=== PATIENT | female | born 1990 | race Caucasian/White ===

== ENCOUNTER 2019-03-02 13:29 | Inpatient (IN) ==
[2019-03-02] MEDS ORDERED: OXYTOCIN 30 UNITS/500 ML BAG IV PRN ×3 (14:28→23:42)
--- NOTE | 2019-03-02 14:33 | History & Physical Report ---
Date of Service March 02, 2019 Assessment & Plan (1) 39 weeks gestation of : Spontaneous early labor - admit to L&D. IV access, labs, EFM/[place]. Will plan to walk the halls. OK for epidural when she desires. History of Present Illness Chief Complaint: contractions Primary Care Provider: Dale Pretty MD 28yo @ 39 5 presents with worsening contractions, started at 0400 today. No leaking of fluid. Has had some dark brown vaginal spotting. + movement. complicated by ultrasound showing intracardiac echogenic focus, negative panorama. 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 Dark bloody show. FHT Cat 1, reactive. [place] Q2-3 min Results & Data Vital Signs (Past 12 Hours) Vital Signs Temp Pulse Resp BP 03/02/19 13:43 36.8 C 81 20 127/84 03/02/19 13:40 36.8 C 81 20 127/84
[2019-03-02 14:59] LABS: Hematocrit (blood only) 37.3 % (37-47); Hemoglobin 12.7 g/dL (12.0-16.0); Mean Corpuscular Volume 90.3 fL (80-100); Mean Platelet Volume 12.6 fL (7.4-10.4); Platelet Count 132 K/uL (130-400); RDW Coefficient of Variation 13.6 % (11.5-14.5); RDW Standard Deviation 45.1 fL (36.4-46.3); Red Blood Count 4.13 M/uL (4.2-5.4); White Blood Count 10.73 K/uL (4.8-10.8)
[2019-03-02] MEDS ORDERED: ePHEDrine sulfate 50 MG/ML AMP ONE (16:57)
[2019-03-02] MEDS ORDERED: BUPIVACAINE 0.25% 30 ML VIAL ONE (16:57)
[2019-03-02] MEDS ORDERED: fentaNYL citrate 100 MCG/2 ML VIAL ONE (16:58)
[2019-03-02] MEDS ORDERED: fentaNYL 2MCG/ML ROPIV 1.25MG/ML 100 ML BAG EPI ONE (16:58)
[2019-03-02] MEDS: LACTATED RINGER'S 1,000 ML IV PRN ×2 (17:04→18:32)
--- NOTE | 2019-03-02 17:17 | Anesthesiology Consultation ---
Date of Service March 02, 2019 Assessment & Plan (1) Encounter for pre-operative examination: Chart Review Chart Review: Acceptable Risk for Labor Epidural Consults Requested none ASA ASA2 Proposed Anesthesia Anesthesia Type: Labor Epidural Risk / Benefits Reviewed With: PT / POA / Parent / Guardian, Accepts Plan and Informed Consent Obtained History Height/Weight Height: 5 ft 4 in Weight: 79.379 kg Allergies Allergy/AdvReac Type Severity Reaction Status Date / Time No Known Allergies Allergy Unverified 04/08/15 19:43 Medications Home Medications Medication Instructions Recorded Confirmed Last Taken vit-iron fum-folic ac 1 tab PO DAILY 03/02/19 03/02/19 03/02/19 06:00 [ Vitamin] ranitidine HCl [Zantac 75] 75 mg PO BID 03/02/19 03/02/19 03/02/19 06:00 Active Medications Generic Name Dose Route Start Last Admin Trade Name Freq PRN Reason Stop Dose Admin Lactated Ringer's 1,000 mls @ 125 mls/hr 03/02/19 14:28 03/02/19 17:04 Lr IV 03/04/19 14:27 999 mls/hr .Q8H PRN Administration L&D Protocol Protocol Past Medical History Medical History [place] teeth removed Exercise / Class Metabolic Activity II 4-5 Yardwork/Stairs/Walk up hill Past Anesthesia History No Hx of Anesthesia Complications and No Family Hx of Anesthesia Complications History of PONV No Hx of PONV and No Hx of Motion Sickness Social History Smoking Status: Former smoker Do You Dip or Chew Tobacco: No Hx Alcohol Use: No Hx Substance Use: No Physical Exam Vital Signs Last Vital Signs Temp 97.9 F 03/02/19 15:19 Pulse 66 03/02/19 15:20 Resp 22 03/02/19 15:19 BP 116/78 03/02/19 15:20 ENMT Mouth: no dentition abnormality Thyromental Distance: > or= 3.5 Finger Breadths Mallampati Class: II Neck normal visual inspection Respiratory normal respiratory effort Auscultation: lungs clear to auscultation bilaterally Cardiovascular Rate/Rhythm: regular rate and regular rhythm Testing Laboratory Results 03/02/19 14:39
[2019-03-02] MEDS ORDERED: NALBUPHINE HCL INJ 10 MG/ML AMP IV PRN (17:38)
[2019-03-02] MEDS ORDERED: NALOXONE HCL 0.4 MG/1 ML VIAL/CARP IV PRN (17:38)
[2019-03-02] MEDS ORDERED: NALOXONE HCL 1 MG in SODIUM CHLORIDE 0.9% 1000ML 1,000 ML IV PRN (17:38)
[2019-03-02] MEDS ORDERED: ePHEDrine sulfate 50 MG/ML AMP IV PRN (17:38)
[2019-03-02] MEDS ORDERED: DiphenhydrAMINE HCL 50 MG/ML VIAL IV PRN (17:38)
[2019-03-02] MEDS ORDERED: fentaNYL 2MCG/ML ROPIV 1.25MG/ML 100 ML BAG EPI PRN (17:38)
[2019-03-02] MEDS ORDERED: ONDANSETRON INJ 2 MG/ML 2 ML VIAL IV PRN (17:38)
--- NOTE | 2019-03-02 20:13 | Obstetrical Progress Note ---
Date of Service March 02, 2019 Subjective SROM for clear fluid about 45 minutes ago per RN. Comfortable with epidural. FHT Cat 1 [place] Q 2-4 SVE 7/100/-1 Will start pitocin to increase ctx frequency - patient is agreeable. Results & Data Vital Signs (Past 12 Hours) Vital Signs Temp Pulse Resp BP Pulse Ox 03/02/19 20:09 77 97 03/02/19 20:04 75 98 03/02/19 19:59 72 99 03/02/19 19:56 65 109/60 03/02/19 19:54 68 98 03/02/19 19:49 72 98 03/02/19 19:44 65 98 03/02/19 19:41 65 108/59 L 03/02/19 19:39 71 98 03/02/19 19:34 68 98 03/02/19 19:29 66 98 03/02/19 19:27 63 103/58 L 03/02/19 19:24 65 97 03/02/19 19:19 67 97 03/02/19 19:14 75 99 03/02/19 19:11 72 103/59 L 03/02/19 19:09 71 98 03/02/19 19:04 65 97 03/02/19 18:59 68 97 03/02/19 18:57 66 106/59 L 03/02/19 18:54 67 97 03/02/19 18:49 67 98 03/02/19 18:44 80 99 03/02/19 18:41 70 109/64 03/02/19 18:39 73 99 03/02/19 18:34 99 H 99 03/02/19 18:29 64 98 03/02/19 18:26 62 108/64 03/02/19 18:24 72 99 03/02/19 18:19 63 98 03/02/19 18:14 60 98 03/02/19 18:12 62 108/67 03/02/19 18:09 63 98 03/02/19 18:04 63 98 03/02/19 17:59 65 98 03/02/19 17:54 66 151/116 H 99 03/02/19 17:49 66 99 03/02/19 17:47 68 97/55 L 03/02/19 17:44 75 99 03/02/19 17:41 76 107/60 03/02/19 17:39 71 97/56 L 99 03/02/19 17:37 78 99/59 L 03/02/19 17:36 70 94/54 L 03/02/19 17:35 70 94/53 L 03/02/19 17:34 73 99/55 L 100 03/02/19 17:29 76 99 03/02/19 17:24 92 H 98 03/02/19 17:20 86 93 03/02/19 17:19 84 99 03/02/19 15:20 66 116/78 03/02/19 15:19 36.6 C 22 03/02/19 13:43 36.8 C 81 20 127/84 03/02/19 13:40 36.8 C 81 20 127/84
--- NOTE | 2019-03-02 23:38 | Anesthesia Procedure Note ---
Date of Service March 02, 2019 Anesthesia Post Epidural Note Vital Signs Vital Signs: Temp Pulse Resp BP Pulse Ox 37.0 C 75 20 112/76 98 03/02/19 22:38 03/02/19 23:25 03/02/19 22:38 03/02/19 23:25 03/02/19 23:24 Pain Intensity Bilateral Abdomen: Pain Intensity: 0 Notes Mental Status: alert / awake / arousable and participated in evaluation Nausea / Vomiting: adequately controlled Pain: adequately controlled Airway Patency, RR, SpO2: stable & adequate BP & HR: stable & adequate Hydration State: stable & adequate Neuraxial Anesthesia: was administered and sensory block is resolving Anesthetic Complications: no major complications apparent and Pt Satisfied with anesthetic care Epidural: Removed without complications and With tip intact Notes: Epidural site clean, dry and intact. No signs of edema, erythema or bruising at insertion site. Pt instructed to request anesthesia if she has residual lower extremity numbness or if she develops lower extremity pain or weakness, back pain or headache.
[2019-03-02] MEDS ORDERED: BENZOCAINE 20% AER SPR 82.5 GM CAN EXT PRN (23:42)
[2019-03-02] MEDS ORDERED: HYDROCORTISONE ACETATE 25 MG SUPP PR PRN (23:42)
[2019-03-02] MEDS ORDERED: SUPERCREAM 0.870% 15 GM JAR EXT PRN (23:42)
[2019-03-02] MEDS ORDERED: BISACODYL 10 MG SUPP PR PRN (23:42)
[2019-03-02] MEDS ORDERED: ACETAMINOPHEN 325 MG TAB PO PRN (23:42)
[2019-03-02] MEDS ORDERED: DIPHTHERIA/TETANUS/PERTUSSIS 0.5 ML SYR/VIAL IM ONE (23:42)
--- NOTE | 2019-03-02 23:43 | Delivery Summary ---
Vaginal Delivery Summary Date of Service March 02, 2019 Vaginal Delivery Summary Vaginal Delivery Summary: Pre-delivery diagnoses: 28yo @ 39 5/7, spontaneous labor, cardiac echogenic focus - normal panorama, migraines Post-delivery diagnoses: same Procedure: spontaneous vaginal delivery Surgeon: Gertrude Flores DO Complications: none Findings: Viable female . Apgars: 8/9 . Weight pending, please see nursery records Estimated blood loss: 300ml Description of delivery: The patient progressed to complete with epidural anesthesia. She then began to push. She spontaneously vaginally delivered a viable female from the cephalic presentation. The head delivered in UNA position. No nuchal cord was noted. The anterior shoulder delivered, followed by the posterior shoulder, followed by the body. Baby's mouth and nose were bulb suctioned and the baby was placed on mother's abdomen and a spontaneous cry was heard. The cord was doubly clamped and cut. Cord blood was obtained. The placenta was delivered spontaneously intact with a 3-vessel cord. The uterus and vagina were swept of clots and debris. IV pitocin was given. The uterus became firm. The cervix, vagina, and perineum were inspected and superficial hemostatic periclitoral lacerations were noted, not repaired. Excellent hemostasis was observed. The mother and baby are recovering in stable and good condition in the room. Sponge and instrument counts were correct x 2. DO JARRETT Darling
[2019-03-03] MEDS: IBUPROFEN 600 MG TAB PO PRN ×3 (05:25→23:43)
[2019-03-03 07:31] LABS: Hematocrit (blood only) 35.5 % (37-47); Hemoglobin 12.3 g/dL (12.0-16.0); Mean Corpuscular Hgb Conc 34.6 g/dL (32-36); Mean Corpuscular Volume 91.5 fL (80-100); Mean Platelet Volume 12.6 fL (7.4-10.4); Platelet Count 124 K/uL (130-400); RDW Coefficient of Variation 13.8 % (11.5-14.5); RDW Standard Deviation 45.2 fL (36.4-46.3); Red Blood Count 3.88 M/uL (4.2-5.4); White Blood Count 12.38 K/uL (4.8-10.8)
[2019-03-03 07:32] LABS: Platelet Estimate Decreased (Normal)
--- NOTE | 2019-03-03 08:16 | Obstetrical Progress Note ---
Date of Service March 03, 2019 Assessment & Plan (1) Normal labor and delivery: PPD#1 doing well. Today's goals: ambulate, hydrate. Anticipate discharge tomorrow. Subjective Ambulation: ambulating normally Voiding: no voiding problems Diet Tolerance:: regular diet Lochia:: Moderate Review of Systems All systems reviewed & are unremarkable except as noted in HPI & below Physical Exam Constitutional WD/WN, vitals as above no acute distress Respiratory normal respiratory effort Cardiovascular Rate/Rhythm: regular rate and regular rhythm Gastrointestinal (Abdomen) Inspection/Auscultation: abdomen normal to inspection; abdomen not distended Percussion/Palpation: abdomen soft Genitourinary OB Exam Abdomen: + fundal height Fundus: + firm; not tender Results & Data Vital Signs (Past 12 Hours) Vital Signs Temp Pulse Pulse Resp BP BP Pulse Ox 03/03/19 03:00 36.9 C 59 L 18 115/71 03/03/19 01:55 36.8 C 75 18 106/64 03/03/19 01:30 75 20 03/03/19 01:26 75 101/57 L 03/03/19 01:11 71 109/62 03/03/19 01:00 84 20 03/03/19 00:57 84 108/58 L 03/03/19 00:41 80 116/58 L 03/03/19 00:30 84 20 03/03/19 00:27 83 133/56 L 03/03/19 00:14 79 20 03/03/19 00:11 79 121/76 03/02/19 23:56 69 117/70 03/02/19 23:55 80 20 110/58 L 03/02/19 23:42 80 110/58 L 03/02/19 23:40 80 20 110/58 L 03/02/19 23:25 37.0 C 75 18 112/76 03/02/19 23:24 76 98 03/02/19 23:19 81 97 03/02/19 23:14 82 98 03/02/19 23:13 89 93 03/02/19 23:09 69 99 03/02/19 23:04 76 100 03/02/19 22:59 73 98 03/02/19 22:56 68 111/67 03/02/19 22:54 76 99 03/02/19 22:49 66 99 03/02/19 22:44 83 98 03/02/19 22:41 64 106/64 03/02/19 22:39 69 98 03/02/19 22:38 37.0 C 20 03/02/19 22:34 74 98 03/02/19 22:29 63 98 03/02/19 22:26 65 105/63 03/02/19 22:24 73 97 03/02/19 22:19 78 97 03/02/19 22:14 74 98 03/02/19 22:11 67 106/64 03/02/19 22:09 74 98 03/02/19 22:04 89 98 03/02/19 21:59 66 98 03/02/19 21:57 64 111/67 03/02/19 21:54 67 99 03/02/19 21:49 73 98 03/02/19 21:44 68 98 03/02/19 21:41 72 108/68 03/02/19 21:39 68 97 03/02/19 21:34 72 98 03/02/19 21:31 37.2 C 16 03/02/19 21:29 76 98 03/02/19 21:27 65 108/67 03/02/19 21:24 69 98 03/02/19 21:19 66 98 03/02/19 21:14 75 98 03/02/19 21:12 64 105/63 03/02/19 21:09 67 97 03/02/19 21:04 72 98 03/02/19 20:59 86 98 03/02/19 20:56 67 111/66 03/02/19 20:54 65 97 03/02/19 20:49 71 97 03/02/19 20:44 63 97 03/02/19 20:41 63 105/62 03/02/19 20:39 68 97 03/02/19 20:34 74 96 03/02/19 20:29 67 99 03/02/19 20:26 72 100/60 03/02/19 20:24 69 97 03/02/19 20:19 67 97
[2019-03-03] MEDS: PRENATAL VITAMIN 1 TAB PO SCH (08:23)
[2019-03-03] MEDS: DOCUSATE SODIUM 100 MG CAP PO SCH ×2 (08:23→20:43)
[2019-03-03] MEDS ORDERED: NON-FORMULARY MEDICATION (Prenatal Vit-Iron Fum-Folic Ac [Prenatal Vitamin] 1 TAB) PO SCH (09:00)
[2019-03-03] MEDS ORDERED: BISACODYL 5 MG TABEC PO SCH (20:00)
[2019-03-04 06:24] LABS: Hematocrit (blood only) 36.5 % (37-47); Hemoglobin 12.1 g/dL (12.0-16.0)
--- NOTE | 2019-03-04 06:54 | Obstetrical Progress Note ---
Date of Service <Jessica Reeys MD - Last Filed: 03/04/19 07:55> March 04, 2019; discharge today. Assessment & Plan <Jessica Reyes MD - Last Filed: 03/04/19 07:55> Day #:: 2 Subjective <Jessica Reyes MD - Last Filed: 03/04/19 07:55> Ambulation: ambulating normally Voiding: no voiding problems Passing Gas:: Yes Diet Tolerance:: regular diet Feeding Type:: breast feeding Current Pain Level(1-10): 0 Constitutional: no fever and no chills No shortness of breath Cardiovascular: no chest pain Breast: no breast pain Gastrointestinal: no abdominal pain, no nausea, no vomiting and no constipation Genitourinary (female): no dysuria and no difficulty urinating Physical Exam <Jessica Reyes MD - Last Filed: 03/04/19 07:55> Constitutional WD/WN, vitals as above in no acute distress, sitting comfortably, breast feeding. Respiratory normal respiratory effort, lungs clear to auscultation normal respiratory effort; no respiratory distress Cardiovascular RRR, no murmur, no edema Gastrointestinal (Abdomen) normal bowel sounds, soft, nontender, no hepatosplenomegaly Genitourinary Uterus: nontender, palpable 2 cm below umbilicus, firm Results & Data <Jessica Reyes MD - Last Filed: 03/04/19 07:55> Vital Signs (Past 12 Hours) Vital Signs Temp Pulse Pulse Resp BP Pulse Ox 03/04/19 04:20 36.6 C 61 61 18 103/68 03/03/19 23:50 36.5 C 48 L 56 L 18 128/84 03/03/19 20:30 36.3 C L 76 18 123/84 98 <Gertrude Flores DO - Last Filed: 03/04/19 08:16> Co-Signing Physician Notes Resident Physician Supervision Note: I was present with resident during the history and exam. I discussed the case with the resident and agree with the findings and plan as documented in the note. Any exceptions or clarifications are listed here: PPD#2 doing well. DC instructions reviewed. Home today. Followup in office 6w. Documented By: Gertrude Flores DO
[2019-03-04] MEDS: PRENATAL VITAMIN 1 TAB PO SCH (08:07)
[2019-03-04] MEDS: DOCUSATE SODIUM 100 MG CAP PO SCH (08:11)
[2019-03-04] MEDS: IBUPROFEN 600 MG TAB PO PRN (10:10)
== END 2019-03-04 11:05 | disposition home or self-care (01) | DRG 807 ==
LOC: OPB 13:29 → 4S1 13:30 → 4S2 03-03 01:53

== ENCOUNTER 2023-11-03 07:00 | Inpatient (IN) ==
--- NOTE | 2023-11-03 07:19 | Emergency Department Note ---
History of Present Illness General Chief complaint: Chest Pain Stated complaint: CHEST PAIN Time Seen by Provider: 11/03/23 07:07 History of Present Illness Maximum Pain Intensity: 6 This is a 33-year-old female that presents to the emergency department via private vehicle with complaints of "chest pain". The patient states that 2 days ago (on Monday) she began with chest pain that is in the middle of the chest as well as superior abdomen that now radiates into her left arm and jaw area. She denies any history of similar. She does not necessarily feel short of breath but does feel like she is breathing heavier. Patient also notes associated decreased appetite. When the symptoms began she also had associated diarrhea and vomiting but that has resolved. No dizziness. No fever. She denies any pertinent past medical history or surgeries. She notes allergy to prednisone. Home Medications Medication Instructions Recorded Confirmed Type No Known Home Medications 11/03/23 11/03/23 History Allergies Allergy/AdvReac Type Severity Reaction Status Date / Time prednisone Allergy Intermediate Hives Unverified 11/03/23 10:24 No Known Drug Allergies Allergy Verified 04/23/19 11:45 Past Med/Surg History Medical History H/O varicella Hx: UTI (urinary tract infection) H/O prolonged Surgical History [place] teeth removed Family History Grandfather (Paternal) Diabetes Grandmother (Maternal) Breast cancer Thyroid disease Mother Hypertension Diabetes Social History Smoking Status: Light tobacco smoker Tobacco Type: Cigarettes Age Started Using Tobacco: 23; Cigarettes Per Day: 3 or less; Second Hand Exposure: No; Do You Dip or Chew Tobacco: No; Tobacco Cessation Education Requested by Patient: No Hx Alcohol Use: Yes Alcohol type: wine Alcohol type Comment: 5-6 glasses Alcohol Intake Frequency Comment: Almost daily Hx Substance Use: No Preferred Language: Belizean Communication Ability: Effective Cut Off Saw Grader Required: No Beliefs That Will Affect Care: None marital status: Current Living Situation: Spouse and Family Current Living Situation Comment: Home with family. Other Information That Helps Us Care for You: No Feels Safe at Home: Yes Safety Concerns: Feels Safe At This Time Assistive Devices: None Review of Systems A total of 10 systems reviewed and were otherwise negative Physical Exam Vital Signs Vital Signs - 24 hr 11/03/23 07:03 11/03/23 07:11 11/03/23 07:12 Temperature 36.6 C Temperature Source Temporal Artery Scan Pulse Rate 76 Pulse Rate [Apical] 61 Pulse Rate from SpO2 Sensor Respiratory Rate 20 19 Respiratory Effort / Characteristics Non-Labored Non-Labored Spontaneous Respiratory Depth Normal Normal Respiratory Pattern Blood Pressure 123/88 Blood Pressure [Right Arm] 115/84 Blood Pressure Mean 99 Blood Pressure Mean [Right Arm] 94 Blood Pressure Position [Right Arm] Pulse Oximetry 99 100 Oxygen Delivery Method Room Air Room Air Room Air Sepsis Recent Fever Within 48 Hours No Sepsis New/Unexplained Change in Mental Status No Sepsis Action Taken by Nursing No Action Required 11/03/23 07:14 11/03/23 07:30 11/03/23 08:00 Temperature Temperature Source Pulse Rate 54 L 55 L Pulse Rate [Apical] Pulse Rate from SpO2 Sensor 53 L 55 L Respiratory Rate 22 20 Respiratory Effort / Characteristics Respiratory Depth Respiratory Pattern Blood Pressure 116/81 121/90 Blood Pressure [Right Arm] Blood Pressure Mean 92 100 Blood Pressure Mean [Right Arm] Blood Pressure Position [Right Arm] Pulse Oximetry 99 97 97 Oxygen Delivery Method Room Air Room Air Room Air Sepsis Recent Fever Within 48 Hours Sepsis New/Unexplained Change in Mental Status Sepsis Action Taken by Nursing 11/03/23 08:25 11/03/23 08:30 11/03/23 08:36 Temperature Temperature Source Pulse Rate 73 58 L 69 Pulse Rate [Apical] Pulse Rate from SpO2 Sensor 59 L 68 Respiratory Rate 13 15 Respiratory Effort / Characteristics Respiratory Depth Respiratory Pattern Blood Pressure 137/102 H 135/101 H Blood Pressure [Right Arm] Blood Pressure Mean 113 112 Blood Pressure Mean [Right Arm] Blood Pressure Position [Right Arm] Pulse Oximetry 99 98 Oxygen Delivery Method Room Air Room Air Sepsis Recent Fever Within 48 Hours Sepsis New/Unexplained Change in Mental Status Sepsis Action Taken by Nursing 11/03/23 09:00 11/03/23 09:30 11/03/23 10:05 Temperature Temperature Source Pulse Rate 57 L 62 Pulse Rate [Apical] 58 L Pulse Rate from SpO2 Sensor 55 L 59 L Respiratory Rate 11 L 17 20 Respiratory Effort / Characteristics Non-Labored Spontaneous Respiratory Depth Normal Respiratory Pattern Regular Blood Pressure 124/90 123/90 Blood Pressure [Right Arm] 120/87 Blood Pressure Mean 101 101 Blood Pressure Mean [Right Arm] 98 Blood Pressure Position [Right Arm] Semi-fowlers Pulse Oximetry 97 97 97 Oxygen Delivery Method Room Air Room Air Sepsis Recent Fever Within 48 Hours Sepsis New/Unexplained Change in Mental Status Sepsis Action Taken by Nursing 11/03/23 10:06 Temperature Temperature Source Pulse Rate 53 L Pulse Rate [Apical] Pulse Rate from SpO2 Sensor Respiratory Rate 17 Respiratory Effort / Characteristics Respiratory Depth Respiratory Pattern Blood Pressure 120/87 Blood Pressure [Right Arm] Blood Pressure Mean 98 Blood Pressure Mean [Right Arm] Blood Pressure Position [Right Arm] Pulse Oximetry 95 Oxygen Delivery Method Room Air Sepsis Recent Fever Within 48 Hours Sepsis New/Unexplained Change in Mental Status Sepsis Action Taken by Nursing VITAL SIGNS - Vital signs and nursing notes were reviewed. Stable and afebrile. GENERAL -33-year-old female appearing her stated age who is in no acute distress. Communicates well with provider and answers questions appropriately. SKIN - Without rashes. No meningeal or petechial rash. HEAD - NC/AT. EYES - PERRL with EOMI bilaterally. Sclera anicteric. EARS - No deformities of external structures noted on gross examination bilaterally. NOSE - Midline and without cyanosis. No epistaxis or purulent drainage noted. MOUTH/OROPHARYNX - Without perioral cyanosis. NECK - Neck with FROM. No nuchal rigidity. LUNGS - Chest wall symmetric without accessory muscle use, intercostals retractions, or central cyanosis. Normal vesicular breath sounds CTA B/L. No wheezes, rales, or rhonchi appreciated. CARDIAC - RRR with S1/S2. No murmur, rubs, or gallops appreciated. ABDOMEN - Abdominal contour normal without pulsations or visible masses. BS normoactive all four quadrants. No tenderness, palpable masses, hepatosplenomegaly, or ascites noted. EXTREMITIES - No clubbing or peripheral cyanosis.+5/5 strength noted in UE/LE bilaterally. NEUROLOGIC - Cranial nerves grossly intact. PSYCH - A&O, pleasant on exam. Course Administered Medications Acetaminophen (Acetaminophen 325 Mg Tab) 650 mg PO Q4H PRN PRN Reason: Pain or Fever Stop: 12/03/23 11:56 Last Admin: 11/03/23 19:41 Dose: 650 mg Documented By: LSG Discontinued Medications Aspirin (Aspirin Chew 324 Mg) 324 mg PO NOW STA Stop: 11/03/23 08:29 Last Admin: 11/03/23 08:35 Dose: 324 mg Documented By: BLAKE Ioversol (Optiray 320 125ml) 118 ml IV ONCE ONE Stop: 11/03/23 08:49 Last Admin: 11/03/23 08:46 Dose: 118 ml Documented By: TONY Nitroglycerin (Nitroglycerin 2% Ointment 30gm Tube) 0.5 inch EXT NOW STA Stop: 11/03/23 08:29 Last Admin: 11/03/23 08:36 Dose: 0.5 inch Documented By: BLAKE Potassium Chloride (Potassium Chloride Crtab 20 Meq Tabcr) 40 meq PO NOW STA Stop: 11/03/23 10:39 Last Admin: 11/03/23 11:48 Dose: 40 meq Documented By: BLAKE Medical Decision Making Laboratory Data 11/03/23 07:25 11/03/23 07:25 Lab Results 11/03/23 11/03/23 11/03/23 Range/Units 07:25 08:37 09:22 WBC 3.66 L (4.8-10.8) K/ul RBC 3.54 L (4.20-5.40) M/uL Hgb 11.5 L (12.0-16.0) g/dl Hct 34.7 L (37.0-47.0) % MCV 98.0 (80.0-100.0) fL MCH 32.5 (25.0-34.0) pg MCHC 33.1 (32.0-36.0) g/dL RDW Std Deviation 43.8 (36.4-46.3) fL RDW Coeff of Mily 12.1 (11.5-14.5) % Plt Count 182 (130-400) K/uL MPV 11.1 (9.4-12.4) fL Immature Gran % (Auto) 0.0 % Neut % (Auto) 56.1 % Lymph % (Auto) 32.0 % [place]ock % (Auto) 9.8 % Eos % (Auto) 1.6 % Baso % (Auto) 0.5 % Neut # (Auto) 2.05 (1.40-6.50) K/uL Lymph # (Auto) 1.17 L (1.20-3.40) K/uL [place]ock # (Auto) 0.36 (0.11-0.59) K/uL Eos # (Auto) 0.06 (0.00-0.50) K/uL Baso # (Auto) 0.02 (0.00-0.20) K/uL Immature Gran # (Auto) 0.00 L (0.01-0.20) K/uL PT 11.1 (9.0-12.0) Seconds INR 1.0 (0.9-1.1) APTT 25 (21-31) Seconds PTT Ratio 0.9 D-Dimer 240 (0-500) ug/L FEU Sodium 138 (136-145) mmol/L Potassium 3.3 L (3.5-5.1) mmol/L Chloride 104 (98-107) mmol/L Carbon Dioxide 27 (21-32) mmol/L Anion Gap 7 (3-11) BUN 7 (6-23) mg/dl Creatinine 0.58 L (0.6-1.2) mg/dl Est Cr Clr Drug Dosing 134.2 ml/min Est GFR ( Amer) 139.4 ml/min Est GFR (Non-Af Amer) 120.3 ml/min BUN/Creatinine Ratio 12.1 (10-20) Glucose 117 H (70-99(Fasting)) mg/dl Calcium 9.3 (8.6-10.3) mg/dl Magnesium 1.7 (1.7-2.4) mg/dl Total Bilirubin 0.6 (0.2-1.0) mg/dl AST 106 H (13-39) U/L ALT 24 (7-52) U/L Alkaline Phosphatase 39 (34-104) U/L Troponin I High Sens 30717.9 H* 91452.8 H* D (0-14) pg/ml Total Protein 6.6 (6.0-8.3) gm/dl Albumin 4.1 (3.4-5.0) gm/dl Globulin 2.5 (2.5-4.0) gm/dl Albumin/Globulin Ratio 1.6 (0.9-2) Lipase 9 L (11-82) U/L TSH 3.475 (0.300-4.500) uIu/ml HCG, Qual Negative (Negative) Adenovirus (PCR) Not Detected (NotDetected) B. pertussis DNA (PCR) Not Detected (NotDetected) B.parapertussis DNA PCR Not Detected (NotDetected) C. pneumoniae DNA (PCR) Not Detected (NotDetected) Coronavirus OC43 (PCR) Not Detected (NotDetected) Coronavirus HKU1 (PCR) Not Detected (NotDetected) Coronavirus 229E (PCR) Not Detected (NotDetected) SARS-CoV-2 (PCR) Not Detected (NotDetected) Coronavirus NL63 (PCR) Not Detected (NotDetected) Human Metapneumovir PCR Not Detected (NotDetected) Influenza Type A (PCR) Not Detected (NotDetected) Influenza Type B (PCR) Not Detected (NotDetected) M. pneumoniae (PCR) Not Detected (NotDetected) Parainfluenza 1 (PCR) Not Detected (NotDetected) Parainfluenza 2 (PCR) Not Detected (NotDetected) Parainfluenza 3 (PCR) Not Detected (NotDetected) Parainfluenza 4 (PCR) Not Detected (NotDetected) RSV (PCR) Not Detected (NotDetected) Entero/Rhino (PCR) Not Detected (NotDetected) Imaging Data Radiologist's Impression: Chest X-Ray 11/03/23 07:15 XR chest 1V portable CLINICAL HISTORY: Chest pain. COMPARISON STUDY: No previous studies for comparison. FINDINGS: Lung volumes are normal. Lungs are clear. There is no pneumothorax or pleural effusion. Cardiac size is normal. Mediastinal contours are normal. There is no evidence for pulmonary edema. IMPRESSION: No acute cardiopulmonary findings. ACT 112: Negative or not required by law. Electronically signed by: Tom Montoya M.D. 11/03/2023 8:01 AM Chest CTA 11/03/23 08:27 CT ANGIOGRAM OF THE CHEST CLINICAL HISTORY: Atypical chest pain. Elevated troponin. COMPARISON STUDY: Chest x-ray dated 11/03/2023. TECHNIQUE: Following the IV administration of 118 cc of Optiray 320, CT angiogram of the chest was performed from the upper abdomen to the thoracic inlet utilizing the pulmonary embolus protocol. Images are reviewed in the axial, sagittal, and coronal planes. 3-D MIPS images are created and assessed. IV contrast was administered without complication. A dose lowering technique was utilized adhering to the principles of ALARA. CT DOSE: 523.27 mGy.cm FINDINGS: Thyroid: Imaged portions of the thyroid gland are normal in size and attenuation. Thoracic aorta: The thoracic aorta is normal in caliber and demonstrates standard 3-vessel arch anatomy. No dissection is seen. Pulmonary vasculature: The pulmonary trunk is normal in caliber. There are no filling defects identified in main, lobar, or segmental pulmonary branches to suggest pulmonary embolus. Heart: The heart is normal in size and without pericardial effusion. Lungs and pleural spaces: The lungs and pleural spaces are clear. The trachea and central airways are patent. Mediastinum: There is no mediastinal lymphadenopathy. Chey: Clear. Axillae: There is no axillary lymphadenopathy. Upper abdomen: Partially visualized upper abdominal viscera is within normal limits. Skeletal structures: No lytic or blastic bony lesions are seen. IMPRESSION: 1. There is no evidence of pulmonary embolus in the main, lobar, or segmental pulmonary arteries. 2. The lungs are clear. ACT 112: Negative or not required by law. Electronically signed by: Jm Bermeo M.D. 11/03/2023 9:01 AM MDM Narrative Patient was seen and evaluated as above in room C06. Review was performed of triage nursing notes and vital signs. I did review pertinent previous visits and patient history. After obtaining a thorough history and physical examination the above work up was performed. Patient presents to us today for evaluation of chest pain with associated discomfort that seems also be in the upper abdomen and now radiates into her left jaw and left arm. No history of similar. No history of FL or PE. Symptoms have been constant over the past 2 days. Initially with the above symptoms she also had vomiting and diarrhea but that has since resolved. Options of care were discussed with the patient. EKG was obtained revealing sinus bradycardia at a rate of 56 bpm. QTc 405. QRS 64. No ST elevation. IV access was established. Labs were drawn. There is mild leukopenia 3.66. There is mild anemia with hemoglobin of 11.5 that is slightly decreased compared to previous. Coags are normal. D-dimer within normal range. Mild hypokalemia 3.3. No evidence of kidney or liver failure emergently. Mild elevation of AST at 106. Glucose 117. Initial troponin was significantly elevated at around 14,000. TSH reveals euthyroid state. hCG negative. Bio fire panel pending. Oral aspirin and Nitropaste were ordered which alleviated her symptoms. CTA of chest negative. Cardiology was consulted. I spoke with Dr. Vera at 9:11 AM on 11/03/2023 and he recommended echocardiogram. I also called the hospitalist service to proceed with inpatient management for further evaluation and management. The patient will require hospitalization for her current ailment. Please refer to further documentation regarding her stay. At 10:28 AM I did speak with the on-call sales and events coordinator again as the patient's second troponin did return elevated about 3000 points higher than the first at over 17,000. He noted that he did review the patient's echocardiogram that was performed here at bedside and it appeared normal. We will proceed with medical admission at this time. Case was discussed with the attending physician. An order was placed for continuous cardiac monitoring. Sinus bradycardia at a rate 59 bpm noted. GCS: 15 In the evaluation and treatment of this patient, the following differential diagnoses were considered: FL, ASC, Dysrhythmia, Angina, Mediastinitis, GERD, Esophagitis, PE, Pneumonia, Bronchitis, Costochondritis, Rib Fracture, Zoster, among others. Impression & Plan Chest pain, Elevated troponin Discharge Plan Visit Data Chief Complaint: Chest Pain Stated Complaint: CHEST PAIN ED Provider: Jm Sheridan ED Midlevel Provider: Javier Schaffer Discharge Problem: Chest pain, Elevated troponin Patient Disposition: Admitted As Inpatient Condition: Good Discharge Instructions Interventions: ED Discharge Assessment Last Done: 11/03/23 11:56
[2023-11-03 07:48] LABS: Basophils # (auto) 0.02 K/uL (0.00-0.20); Basophils % (auto) 0.5 %; Eosinophils # (auto) 0.06 K/uL (0.00-0.50); Eosinophils % (auto) 1.6 %; Hematocrit (blood only) 34.7 % (37.0-47.0); Hemoglobin 11.5 g/dl (12.0-16.0); Lymphocytes # (auto) 1.17 K/uL (1.20-3.40); Mean Corpuscular Hemoglobin 32.5 pg (25.0-34.0); Mean Corpuscular Hgb Conc 33.1 g/dL (32.0-36.0); Mean Platelet Volume 11.1 fL (9.4-12.4); Monocytes # (auto) 0.36 K/uL (0.11-0.59); Monocytes % (auto) 9.8 %; Neutrophils # (auto) 2.05 K/uL (1.40-6.50); Neutrophils % (auto) 56.1 %; Platelet Count 182 K/uL (130-400); RDW Coefficient of Variation 12.1 % (11.5-14.5); RDW Standard Deviation 43.8 fL (36.4-46.3); Red Blood Count 3.54 M/uL (4.20-5.40); White Blood Count 3.66 K/ul (4.8-10.8)
[2023-11-03 07:53] LABS: D Dimer 240 ug/L FEU (0-500); Partial Thromboplastin Ratio 0.9; Partial Thromboplastin Time 25 Seconds (21-31); Prothrombin Time 11.1 Seconds (9.0-12.0)
--- NOTE | 2023-11-03 08:03 | XRay Report ---
XR chest 1V portable CLINICAL HISTORY: Chest pain. COMPARISON STUDY: No previous studies for comparison. FINDINGS: Lung volumes are normal. Lungs are clear. There is no pneumothorax or pleural effusion. Car diac size is normal. Mediastinal contours are normal. There is no evidence for pulmonary edema. IMPRESSION: No acute cardiopulmonary findings. ACT 112: Negative or not required by law. Electronically signed by: Tom Montoya M.D. 11/03/2023 8:01 AM
[2023-11-03 08:04] LABS: Albumin Globulin Ratio 1.6 (0.9-2); Albumin Level 4.1 gm/dl (3.4-5.0); BUN Creatinine Ratio 12.1 (10-20); Bilirubin,Total 0.6 mg/dl (0.2-1.0); Calcium 9.3 mg/dl (8.6-10.3); Creatinine Clr Calc Pharmacy 134.2 ml/min; Est GFR (African American) 139.4 ml/min; Est GFR (Non-African American) 120.3 ml/min; Globulin 2.5 gm/dl (2.5-4.0); Magnesium 1.7 mg/dl (1.7-2.4); Potassium 3.3 mmol/L (3.5-5.1); Total Protein 6.6 gm/dl (6.0-8.3)
[2023-11-03 08:12] LABS: Pregnancy Test, Serum Negative (Negative)
[2023-11-03 08:19] LABS: Thyroid Stimulating Hormone 3.475 uIu/ml (0.300-4.500)
[2023-11-03 08:21] LABS: Troponin I High Sensitivity 14441.9 pg/ml (0-14)
[2023-11-03] MEDS: ASPIRIN CHEW 324 MG PO STA (08:35)
[2023-11-03] MEDS: NITROGLYCERIN 2% OINTMENT 30GM TUBE EXT STA (08:36)
[2023-11-03] MEDS: OPTIRAY 320 125ml IV ONE (08:46)
--- NOTE | 2023-11-03 09:03 | CT Scan Report ---
CT ANGIOGRAM OF THE CHEST CLINICAL HISTORY: Atypical chest pain. Elevated troponin. COMPARISON STUDY: Chest x-ray dated 11/03/2023. TECHNIQUE: Following the IV administration of 118 cc of Optiray 320, CT angiogram of the chest was pe rformed from the upper abdomen to the thoracic inlet utilizing the pulmonary embolus protocol. Images are reviewed in the axial, sagittal, and coronal planes. 3-D MIPS images are created and assessed. I V contrast was administered without complication. A dose lowering technique was utilized adhering to the principles of ALARA. CT DOSE: 523.27 mGy.cm FINDINGS: Thyroid: Imaged portions of the thyroid gland are normal in size and attenuation. Thoracic aorta: The thoracic aorta is normal in caliber and demonstrates standard 3-vessel arch anato my. No dissection is seen. Pulmonary vasculature: The pulmonary trunk is normal in caliber. There are no filling defects identif ied in main, lobar, or segmental pulmonary branches to suggest pulmonary embolus. Heart: The heart is normal in size and without pericardial effusion. Lungs and pleural spaces: The lungs and pleural spaces are clear. The trachea and central airways are patent. Mediastinum: There is no mediastinal lymphadenopathy. Chey: Clear. Axillae: There is no axillary lymphadenopathy. Upper abdomen: Partially visualized upper abdominal viscera is within normal limits. Skeletal structures: No lytic or blastic bony lesions are seen. IMPRESSION: 1. There is no evidence of pulmonary embolus in the main, lobar, or segmental pulmonary arteries. 2. The lungs are clear. ACT 112: Negative or not required by law. Electronically signed by: Jm Bermeo M.D. 11/03/2023 9:01 AM
--- NOTE | 2023-11-03 09:32 | Cardiology Consultation ---
Date of Consultation November 03, 2023 Assessment & Plan (1) Chest pain: - EKG shows sinus bradycardia, no ST changes - troponin initially 14,000 -> 17,000 - Chest CTA; wnl - echo; normal left ventricular systolic function without wall motion abnormality. LVEF 55-60%. No valvular pathology. - at this point suspect this is secondary to myocarditis, so recommend supportive care; avoid NSAIDs, alcohol use, and exercise - continue telemetry/cardiac monitoring as those with myocarditis are at risk for tachy and bradyarrythmias - other episodes of chest pain are unclear etiology but with alcohol use of 5-6 glasses of wine or more most nights, may have a component of gastritis/reflux contributing to her more chronic episodes, especially as they have no apparent correlation with exercise, pt should keep a log of these episodes once discharged from the hospital Supervising Physician Co-Signing Physician Notes Patient seen and examined. Agree with Dr. Agustin's assessment and plan. Suspect acute myocarditis, viral versus idiopathic. Recommendations: 1. Avoid NSAIDs. 2. Limiting alcohol to 1 drink or less per day. 3. Reduce physical activity. 4. No vigorous exercise for 3-6 months. 5. Follow-up with us as an outpatient. History of Present Illness Reason for Consultation: elevated trop, ?myocarditis Requesting Physician: FANTA Cabrales Attending Physician: Dr. Bry Mathew History of Present Illness Pt is a 33 yo female with no past med history who presents for chest pain since Monday at 5 pm, admitted for further workup. Pt states that the pain started out of nowhere when she was getting ready to go to work at 5 on Monday. She states it was in the upper abdomen/center of the chest with radiation to the L arm. She states it had been essentially constant since starting and only started to get better once getting the nitro in the ER today. Pain was 8/10, now 2/10. She states she has been having intermittent chest pain episodes for about the last year maybe 1x a month lasting 1 hr and 6/10 in quality in the same areas as this episode of chest pain. Those episodes have all resolved spontaneously and she does not note any relation to being active or after meals. No recent illnesses that she can recall but does note she gets very bad allergies and sometimes her symptoms can last all day, so she cannot say for sure no URI recently. No palpitations or feeling like she may pass out with the chest pain, did have some nausea days ago that has since resolved. No current or present drug use. Does not take any medications right now. Does smoke 3-4 cigarettes daily on and off for 10 years. Does drink 5-6 glasses of wine most nights of the week. No self hx of [place] or stroke. No family hx of [place] or strokes. No other questions or complaints at this point in time. Overall feeling better since given nitro with some lingering chest pain symptoms and no symptoms other than the pain noted. Allergies Allergy/AdvReac Type Severity Reaction Status Date / Time prednisone Allergy Intermediate Hives Unverified 11/03/23 10:24 No Known Drug Allergies Allergy Verified 04/23/19 11:45 Home Medications Medication Instructions Recorded Confirmed Type No Known Home Medications 11/03/23 11/03/23 History Patient History Medical History H/O varicella Hx: UTI (urinary tract infection) H/O prolonged Surgical History [place] teeth removed Family History Grandfather (Paternal) Diabetes Grandmother (Maternal) Breast cancer Thyroid disease Mother Hypertension Diabetes Social History Smoking Status: Current every day smoker Tobacco Type: Cigarettes Age Started Using Tobacco: 23; Cigarettes Per Day: 3-4; Second Hand Exposure: No; Do You Dip or Chew Tobacco: No; Hx Alcohol Use: Yes Alcohol type: wine Alcohol type Comment: 5-6 glasses A lcohol Intake Frequency Comment: Almost daily Hx Substance Use: No Preferred Language: Nepali Communication Ability: Effective Rail 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 Beliefs That Will Affect Care: None marital status: Current Living Situation: Spouse Feels Safe at Home: Yes Assistive Devices: None Review of Systems Review of Systems: Constitutional: denies fever, chills, Cardio: no palpitations Resp: denies shortness of breath, cough GI: denies abdominal pain, nausea, vomiting, constipation, diarrhea : denies pain with urination, change in urinary frequency Physical Exam Physical Exam: General:Alert and oriented, no acute distress, very pleasant woman HEENT: Normocephalic, moist oral mucosa, Cardio: Regular rate and rhythm, no murmur, no peripheral edema Resp:Lungs clear to auscultation b/l, no wheezes or rhonchi, GI: Soft and nontender, nondistended, bowel sounds active, Skin: Warm, pink, dry, no visible rashes on exposed skin Results & Data Vital Signs (Past 12 Hours) Vital Signs Temp Pulse Pulse Resp BP BP Pulse Ox 11/03/23 09:00 57 L 11 L 124/90 97 11/03/23 08:36 69 15 135/101 H 98 11/03/23 08:30 58 L 13 137/102 H 99 11/03/23 08:25 73 11/03/23 08:00 55 L 20 121/90 97 11/03/23 07:30 54 L 22 116/81 97 11/03/23 07:14 99 11/03/23 07:12 11/03/23 07:11 61 19 115/84 100 11/03/23 07:03 36.6 C 76 20 123/88 99 O2 Del Method 11/03/23 09:00 Room Air 11/03/23 08:36 Room Air 11/03/23 08:30 Room Air 11/03/23 08:25 11/03/23 08:00 Room Air 11/03/23 07:30 Room Air 11/03/23 07:14 Room Air 11/03/23 07:12 Room Air 11/03/23 07:11 Room Air 11/03/23 07:03 Room Air Diagnostic Findings Echocardiogram notes normal left ventricular systolic function without wall motion abnormalities. An estimated left ventricular ejection fraction is 55- 60%. There is no valvular pathology. PG Care Time/CCT Total # of Minutes Spent Total Time Spent with Patient: Total time spent is greater than 50% in coordination of care (as documented) at patient's floor/unit and/or counseling patient: Coding Level of Care Code 89363 OFFICE CONSULT LVL M Diagnoses Chest pain R07.9 Resident Activity Tracking Resident Involvement: Resident Care Provided Care Provided: Adult Hospital Medicine
[2023-11-03 09:53] LABS: Adenovirus PCR Not Detected (NotDetected); Bordetella parapertussis PCR Not Detected (NotDetected); Bordetella pertussis PCR Not Detected (NotDetected); Chlamydia pneumoniae PCR Not Detected (NotDetected); Coronavirus 229E PCR Not Detected (NotDetected); Coronavirus CoV-2 (COVID19)PCR Not Detected (NotDetected); Coronavirus HKU1 PCR Not Detected (NotDetected); Coronavirus NL63 PCR Not Detected (NotDetected); Coronavirus OC43PCR Not Detected (NotDetected); Human Metapneumovirus PCR Not Detected (NotDetected); Influenza A PCR Not Detected (NotDetected); Influenza B PCR Not Detected (NotDetected); Mycoplasma pneumoniae PCR Not Detected (NotDetected); Parainfluenza Virus 1 PCR Not Detected (NotDetected); Parainfluenza Virus 2 PCR Not Detected (NotDetected); Parainfluenza Virus 3 PCR Not Detected (NotDetected); Parainfluenza Virus 4 PCR Not Detected (NotDetected); Respiratory Syncytial VirusPCR Not Detected (NotDetected); Rhinovirus/Enterovirus PCR Not Detected (NotDetected)
[2023-11-03 10:46] LABS: Appearance Urine Clear (Clear); Bacteria Urine Automated 1+ (Negative); Bilirubin Urine Negative (Negative); Blood Urine 3+ (Negative); Color Urine Yellow; Epithelial Cell Urine Auto >30 /lpf (0-5); Glucose Urine UA Negative (Negative); Ketones Urine Negative (Negative); Leukocyte Esterase Urine Trace (Negative); Nitrite Urine Negative (Negative); Protein Urine Negative (Negative); Specific Gravity Urine > 1.045 (1.000-1.030); Urobilinogen Urine Negative (Negative); pH Urine 7.5 (4.5-7.5)
--- NOTE | 2023-11-03 10:56 | History & Physical Report ---
Date of Service November 03, 2023 Assessment & Plan (1) Chest pain: (2) Elevated troponin: Plan: Admit to telemetry Patient presenting from home with reports of persistent chest pain x 3 days. Symptoms worse with lying flat, improved with sitting up. Reports her son had influenza 2 weeks ago. Patient denies any URI or other viral illness symptoms. In the ED, HS troponin 14,000 -> 17,[address] changes Suspect myocarditis Cardiology consulted and evaluated patient in the ED, echocardiogram performed at bedside, formal report pending Continue to trend troponin Avoid NSAIDs and alcohol use (3) Alcohol use: Plan: Patient reports drinking 1 bottle of wine/day Monitor for signs of withdrawal Encourage alcohol cessation Noted elevated AST 106, likely secondary to alcohol use DVT PROPHYLAXIS SCDs Patient seen in collaboration with Dr. Mathew. I spent a total of 60 minutes coordinating, documenting, and providing care for this patient excluding time spent in the performance of separately billed services. This included personally reviewing all current laboratories and imaging studies, medication reconciliation, outpatient chart review, and discussion with specialists. History of Present Illness Chief Complaint: Chest pain Primary Care Provider: NO PCP 33-year-old female without significant past medical or surgical history who presents to the ED for evaluation of chest pain. History is obtained from the patient. She reports that 3 days ago, while she was at work she developed a midsternal chest pressure. She describes the pain as severe. She reports that she felt very fatigued that evening. Pain has been fairly constant since that time. Patient reports that she took Tums without relief. Reports the pain is worse with lying down and somewhat improves when sitting up. She denies shortness of breath. Reports associated diaphoresis, nausea. She reports a few episodes of vomiting and diarrhea. Denies hematemesis, coffee-ground emesis, bright red bleeding per rectum, dark tarry stools. Reports that her son was diagnosed with influenza a couple of weeks ago. Patient denies any URI symptoms. No fevers or chills. No urinary symptoms. Denies any recent travel. In the ED, initial HS troponin 14,000. EKG without acute ST changes. Patient is hemodynamically stable. She received a full dose aspirin and half inch nitroglycerin paste. Patient reports she is currently chest pain-free. Cardiology was notified by ED provider. Allergies Allergy/AdvReac Type Severity Reaction Status Date / Time prednisone Allergy Intermediate Hives Unverified 11/03/23 10:24 No Known Drug Allergies Allergy Verified 04/23/19 11:45 Home Medications Medication Instructions Recorded Confirmed Type No Known Home Medications 11/03/23 11/03/23 History Past Med/Surg History Medical History H/O varicella Hx: UTI (urinary tract infection) H/O prolonged Surgical History [place] teeth removed Family History Grandfather (Paternal) Diabetes Grandmother (Maternal) Breast cancer Thyroid disease Mother Hypertension Diabetes Social History Smoking Status: Light tobacco smoker Tobacco Type: Cigarettes Age Started Using Tobacco: 23; Cigarettes Per Day: 3 or less; Second Hand Exposure: No; Do You Dip or Chew Tobacco: No; Tobacco Cessation Education Requested by Patient: No Hx Alcohol Use: Yes Alcohol type: wine Alcohol type Comment: 5-6 glasses Alcohol Intake Frequency Comment: Almost daily Hx Substance Use: No Preferred Language: Sinhala Communication Ability: Effective Cable Tv Installer Required: No Beliefs That Will Affect Care: None marital status: Current Living Situation: Spouse and Family Current Living Situation Comment: Home with family. Other Information That Helps Us Care for You: No Feels Safe at Home: Yes Safety Concerns: Feels Safe At This Time Assistive Devices: None Review of Systems Review of Systems: All systems reviewed & are unremarkable except as noted in Subjective Physical Exam Constitutional: WD/WN, vitals as above no acute distress Eyes: PERRL, conjunctivae normal, anicteric sclerae ENMT: external ear and nose normal, oropharynx normal Respiratory: normal respiratory effort, lungs clear to auscultation Cardiovascular: Rate/Rhythm: regular rate and regular rhythm Vessels: normal peripheral pulses Extremities: no edema Gastrointestinal (Abdomen): normal bowel sounds, soft, nontender, no hepatosplenomegaly Musculoskeletal: no cyanosis or clubbing, extremities motor strength 5/5 Skin: no rashes, warm and dry Neurologic: PERRL, EOMI, accommodation nl, no face palsy, no dysarthria Psychiatric: A+Ox3, euthymic affect Results & Data Results & Data Vital Signs (Past 12 Hours) Vital Signs Temp Pulse Pulse Resp BP BP Pulse Ox 11/03/23 10:30 51 L 13 124/79 96 11/03/23 10:06 53 L 17 120/87 95 11/03/23 10:05 58 L 20 120/87 97 11/03/23 09:30 62 17 123/90 97 11/03/23 09:00 57 L 11 L 124/90 97 11/03/23 08:36 69 15 135/101 H 98 11/03/23 08:30 58 L 13 137/102 H 99 11/03/23 08:25 73 11/03/23 08:00 55 L 20 121/90 97 11/03/23 07:30 54 L 22 116/81 97 11/03/23 07:14 99 11/03/23 07:12 11/03/23 07:11 61 19 115/84 100 11/03/23 07:03 36.6 C 76 20 123/88 99 O2 Del Method 11/03/23 10:30 Room Air 11/03/23 10:06 Room Air 11/03/23 10:05 Room Air 11/03/23 09:30 11/03/23 09:00 Room Air 11/03/23 08:36 Room Air 11/03/23 08:30 Room Air 11/03/23 08:25 11/03/23 08:00 Room Air 11/03/23 07:30 Room Air 11/03/23 07:14 Room Air 11/03/23 07:12 Room Air 11/03/23 07:11 Room Air 11/03/23 07:03 Room Air Laboratory Results Short CBC 11/03/23 Range/Units 07:25 WBC 3.66 L (4.8-10.8) K/ul Hgb 11.5 L (12.0-16.0) g/dl Hct 34.7 L (37.0-47.0) % Plt Count 182 (130-400) K/uL BMP 11/03/23 07:25 Sodium 138 Potassium 3.3 L Chloride 104 Carbon Dioxide 27 BUN 7 Creatinine 0.58 L Glucose 117 H Calcium 9.3 Liver Function 11/03/23 Range/Units 07:25 Total Bilirubin 0.6 (0.2-1.0) mg/dl AST 106 H (13-39) U/L ALT 24 (7-52) U/L Alkaline Phosphatase 39 (34-104) U/L Albumin 4.1 (3.4-5.0) gm/dl Diagnostic Findings Chest X-Ray 11/03/23 07:15 XR chest 1V portable CLINICAL HISTORY: Chest pain. COMPARISON STUDY: No previous studies for comparison. FINDINGS: Lung volumes are normal. Lungs are clear. There is no pneumothorax or pleural effusion. Cardiac size is normal. Mediastinal contours are normal. There is no evidence for pulmonary edema. IMPRESSION: No acute cardiopulmonary findings. ACT 112: Negative or not required by law. Electronically signed by: Tom Montoya M.D. 11/03/2023 8:01 AM Chest CTA 11/03/23 08:27 CT ANGIOGRAM OF THE CHEST CLINICAL HISTORY: Atypical chest pain. Elevated troponin. COMPARISON STUDY: Chest x-ray dated 11/03/2023. TECHNIQUE: Following the IV administration of 118 cc of Optiray 320, CT angiogram of the chest was performed from the upper abdomen to the thoracic inlet utilizing the pulmonary embolus protocol. Images are reviewed in the axial, sagittal, and coronal planes. 3-D MIPS images are created and assessed. IV contrast was administered without complication. A dose lowering technique was utilized adhering to the principles of ALARA. CT DOSE: 523.27 mGy.cm FINDINGS: Thyroid: Imaged portions of the thyroid gland are normal in size and attenuation. Thoracic aorta: The thoracic aorta is normal in caliber and demonstrates standard 3-vessel arch anatomy. No dissection is seen. Pulmonary vasculature: The pulmonary trunk is normal in caliber. There are no filling defects identified in main, lobar, or segmental pulmonary branches to suggest pulmonary embolus. Heart: The heart is normal in size and without pericardial effusion. Lungs and pleural spaces: The lungs and pleural spaces are clear. The trachea and central airways are patent. Mediastinum: There is no mediastinal lymphadenopathy. Chey: Clear. Axillae: There is no axillary lymphadenopathy. Upper abdomen: Partially visualized upper abdominal viscera is within normal limits. Skeletal structures: No lytic or blastic bony lesions are seen. IMPRESSION: 1. There is no evidence of pulmonary embolus in the main, lobar, or segmental pulmonary arteries. 2. The lungs are clear. ACT 112: Negative or not required by law. Electronically signed by: Jm Bermeo M.D. 11/03/2023 9:01 AM Code Status & VTE Plan VTE Prophylaxis Plan VTE Prophylaxis will be ordered: Yes Supervising Physician Co-Signing Physician Notes Pt seen and examined by me, care coordinated w/ Adriana JEWELL, pls refer to her note above for further detail. Pt is a 33 yo F without significant past medical or surgical history who presents with chest pain and elevated troponin. Reports that her son was diagnosed with influenza a couple of weeks ago. Patient denies any URI symptoms. No fevers or chills. EKG without acute ST changes. Patient is hemodynamically stable. She received a full dose aspirin and half inch nitroglycerin paste. Patient reports she is currently chest pain-free. Cardiology was consulted and echo obtained. Currently pt is laying in bed in NAD, reports CP is mostly resolved, denies any shortness of breath. She is awake, alert oriented and answers appropriately. Lungs are clear to auscultation, heart sounds regular. Abdomen soft, nontender, nondistended. No LE edema. Suspecting myocarditis, cont. supportive care. MD [place]
[2023-11-03 11:09] LABS: RBC Urine Automated 0-4 /hpf (0-4)
[2023-11-03] MEDS: POTASSIUM CHLORIDE CRTAB 20 MEQ TABCR PO STA (11:48)
--- NOTE | 2023-11-03 13:03 | XCELERA ---
[id number]
--- NOTE | 2023-11-03 16:13 | Electrocardiogram Report ---
Test Reason : Blood Pressure : / mmHG Vent. Rate : 056 BPM Atrial Rate : 056 BPM P-R Int : 094 ms QRS Dur : 064 ms QT Int : 420 ms P-R-T Axes : -15 037 062 degrees QTc Int : 405 ms Sinus bradycardia with short NH Low voltage QRS Poor R wave progression, consider anterior VA vs. lead placement vs. LVH Abnormal ECG No previous ECGs available Confirmed by Ehsan Vera ([id number]) on 11/03/2023 4:13:20 PM Referred By: REFERRED SELF Confirmed By:Ehsan Vera
[2023-11-03] MEDS: ACETAMINOPHEN 325 MG TAB PO PRN (19:41)
[2023-11-04 07:12] LABS: Hemoglobin 11.7 g/dl (12.0-16.0); Mean Corpuscular Hemoglobin 32.8 pg (25.0-34.0); Mean Corpuscular Hgb Conc 33.4 g/dL (32.0-36.0); Mean Platelet Volume 10.4 fL (9.4-12.4); Platelet Count 165 K/uL (130-400); RDW Coefficient of Variation 12.1 % (11.5-14.5); RDW Standard Deviation 43.9 fL (36.4-46.3); Red Blood Count 3.57 M/uL (4.20-5.40)
[2023-11-04 07:32] LABS: BUN Creatinine Ratio 14.8 (10-20); Calcium 8.9 mg/dl (8.6-10.3); Creatinine Clr Calc Pharmacy 144.1 ml/min; Est GFR (African American) 142.7 ml/min; Est GFR (Non-African American) 123.1 ml/min; Magnesium 1.9 mg/dl (1.7-2.4); Phosphorus 3.6 mg/dl (2.5-4.9); Potassium 3.8 mmol/L (3.5-5.1)
--- NOTE | 2023-11-04 08:33 | Hospitalist Progress Note ---
Date of Service November 04, 2023 Assessment & Plan (1) Chest pain: (2) Elevated troponin: Plan: Patient presenting from home with reports of persistent chest pain x 3 days. Symptoms worse with lying flat, improved with sitting up. Reports her son had influenza 2 weeks ago. Patient denies any URI or other viral illness symptoms. In the ED, HS troponin 14,000 -> 17,[address] changes Most likely secondary to myocarditis Cardiology consulted and evaluated patient in the ED, echocardiogram performed at bedside, and reviewed Cardiology recommendations: 1. Avoid NSAIDs. 2. Limiting alcohol to 1 drink or less per day. 3. Reduce physical activity. 4. No vigorous exercise for 3-6 months. 5. Follow-up with cardiology as an outpatient. Repeat the troponin in 1 to 2 weeks and repeat the echocardiogram to make sure the troponin is trending down and patient does not develop left ventricular dysfunction. (3) Alcohol use: Plan: Patient reports drinking 1 bottle of wine/day Monitor for signs of withdrawal Encourage alcohol cessation Noted elevated AST 106, likely secondary to alcohol use Admission and Anticipated Discharge Date Admission Date: November 03, 2023 Subjective Pt seen in follow up of chest pain, elev. trop. likely c/w myocarditis Cardiology consulted and echo also obtained and reviewed by cardiology yesterday Currently she is feeling well, denies any chest pain or shortness of breath no abd. pain, n/v No dizziness or lightheadedness Review of Systems Review of Systems: All systems reviewed & are unremarkable except as noted in Subjective Physical Exam Physical Exam: Constitutional: WD/WN, young F in NAD Eyes: PERRL, conjunctiva e normal, anicteri c sclerae ENMT: external ear and n ose normal, oropha rynx normal Respiratory: normal respiratory effort, lungs iftikhar ar to auscultation Cardiovascular: Rate/Rhythm: regul ar rate and regula r rhythm Vessels: normal peripheral pulses Extremiti es: no edema Gastrointestinal ( Abdomen): normal bowel sound s, soft, nontender Musculoskeletal: moves extremities Skin: no rashes, warm an d dry Neurologic: PERRL, EOMI, no fa ce palsy, no dysar thria, moves extre mities Psychiatric: A+Ox3, euthymic af fect Results & Data Results & Data Vital Signs (Past 12 Hours) Vital Signs Temp Pulse Pulse Resp BP Pulse Ox O2 Del Method 11/04/23 07:44 36.8 C 81 16 90/62 L 97 Room Air 11/04/23 03:00 36.6 C 70 16 111/75 99 Room Air 11/04/23 00:50 64 11/03/23 22:29 36.8 C 73 18 112/73 99 Room Air Laboratory Results 11/04/23 11/03/23 11/03/23 Range/Units 07:00 21:21 14:43 WBC 3.50 L (4.8-10.8) K/ul RBC 3.57 L (4.20-5.40) M/uL Hgb 11.7 L (12.0-16.0) g/dl Hct 35.0 L (37.0-47.0) % MCV 98.0 (80.0-100.0) fL MCH 32.8 (25.0-34.0) pg MCHC 33.4 (32.0-36.0) g/dL RDW Std Deviation 43.9 (36.4-46.3) fL RDW Coeff of Mily 12.1 (11.5-14.5) % Plt Count 165 (130-400) K/uL MPV 10.4 (9.4-12.4) fL Sodium 139 (136-145) mmol/L Potassium 3.8 (3.5-5.1) mmol/L Chloride 107 (98-107) mmol/L Carbon Dioxide 27 (21-32) mmol/L Anion Gap 5 (3-11) BUN 8 (6-23) mg/dl Creatinine 0.54 L (0.6-1.2) mg/dl Est Cr Clr Drug Dosing 144.1 ml/min Est GFR ( Amer) 142.7 ml/min Est GFR (Non-Af Amer) 123.1 ml/min BUN/Creatinine Ratio 14.8 (10-20) Glucose 103 H (70-99(Fasting)) mg/dl Calcium 8.9 (8.6-10.3) mg/dl Phosphorus 3.6 (2.5-4.9) mg/dl Magnesium 1.9 (1.7-2.4) mg/dl Troponin I High Sens 22404.0 H* 19868.6 H* 16579.5 H* (0-14) pg/ml Urine Color Urine Appearance (Clear) Urine pH (4.5-7.5) Ur Specific [place] (1.000-1.030) Urine Protein (Negative) Urine Glucose (UA) (Negative) Urine Ketones (Negative) Urine Blood (Negative) Urine Nitrite (Negative) Urine Bilirubin (Negative) Urine Urobilinogen (Negative) Ur Leukocyte Esterase (Negative) Urine WBC (Auto) (0-5) /hpf Urine RBC (Auto) (0-4) /hpf U Hyaline Cast (Auto) (0-5) /lpf U Epithel Cells (Auto) (0-5) /lpf Urine Bacteria (Auto) (Negative) Adenovirus (PCR) (NotDetected) B. pertussis DNA (PCR) (NotDetected) B.parapertussis DNA PCR (NotDetected) C. pneumoniae DNA (PCR) (NotDetected) Coronavirus OC43 (PCR) (NotDetected) Coronavirus HKU1 (PCR) (NotDetected) Coronavirus 229E (PCR) (NotDetected) SARS-CoV-2 (PCR) (NotDetected) Coronavirus NL63 (PCR) (NotDetected) Human Metapneumovir PCR (NotDetected) Influenza Type A (PCR) (NotDetected) Influenza Type B (PCR) (NotDetected) M. pneumoniae (PCR) (NotDetected) Parainfluenza 1 (PCR) (NotDetected) Parainfluenza 2 (PCR) (NotDetected) Parainfluenza 3 (PCR) (NotDetected) Parainfluenza 4 (PCR) (NotDetected) RSV (PCR) (NotDetected) Entero/Rhino (PCR) (NotDetected) 11/03/23 11/03/23 11/03/23 Range/Units 11:25 10:20 09:22 WBC (4.8-10.8) K/ul RBC (4.20-5.40) M/uL Hgb (12.0-16.0) g/dl Hct (37.0-47.0) % MCV (80.0-100.0) fL MCH (25.0-34.0) pg MCHC (32.0-36.0) g/dL RDW Std Deviation (36.4-46.3) fL RDW Coeff of Mily (11.5-14.5) % Plt Count (130-400) K/uL MPV (9.4-12.4) fL Sodium (136-145) mmol/L Potassium (3.5-5.1) mmol/L Chloride (98-107) mmol/L Carbon Dioxide (21-32) mmol/L Anion Gap (3-11) BUN (6-23) mg/dl Creatinine (0.6-1.2) mg/dl Est Cr Clr Drug Dosing ml/min Est GFR ( Amer) ml/min Est GFR (Non-Af Amer) ml/min BUN/Creatinine Ratio (10-20) Glucose (70-99(Fasting)) mg/dl Calcium (8.6-10.3) mg/dl Phosphorus (2.5-4.9) mg/dl Magnesium (1.7-2.4) mg/dl Troponin I High Sens 76985.2 H* 30639.8 H* D (0-14) pg/ml Urine Color Yellow Urine Appearance Clear (Clear) Urine pH 7.5 (4.5-7.5) Ur Specific [place] > 1.045 H (1.000-1.030) Urine Protein Negative (Negative) Urine Glucose (UA) Negative (Negative) Urine Ketones Negative (Negative) Urine Blood 3+ H (Negative) Urine Nitrite Negative (Negative) Urine Bilirubin Negative (Negative) Urine Urobilinogen Negative (Negative) Ur Leukocyte Esterase Trace H (Negative) Urine WBC (Auto) 10-30 H (0-5) /hpf Urine RBC (Auto) 0-4 (0-4) /hpf U Hyaline Cast (Auto) 1-5 (0-5) /lpf U Epithel Cells (Auto) >30 H (0-5) /lpf Urine Bacteria (Auto) 1+ H (Negative) Adenovirus (PCR) (NotDetected) B. pertussis DNA (PCR) (NotDetected) B.parapertussis DNA PCR (NotDetected) C. pneumoniae DNA (PCR) (NotDetected) Coronavirus OC43 (PCR) (NotDetected) Coronavirus HKU1 (PCR) (NotDetected) Coronavirus 229E (PCR) (NotDetected) SARS-CoV-2 (PCR) (NotDetected) Coronavirus NL63 (PCR) (NotDetected) Human Metapneumovir PCR (NotDetected) Influenza Type A (PCR) (NotDetected) Influenza Type B (PCR) (NotDetected) M. pneumoniae (PCR) (NotDetected) Parainfluenza 1 (PCR) (NotDetected) Parainfluenza 2 (PCR) (NotDetected) Parainfluenza 3 (PCR) (NotDetected) Parainfluenza 4 (PCR) (NotDetected) RSV (PCR) (NotDetected) Entero/Rhino (PCR) (NotDetected) 11/03/23 Range/Units 08:37 WBC (4.8-10.8) K/ul RBC (4.20-5.40) M/uL Hgb (12.0-16.0) g/dl Hct (37.0-47.0) % MCV (80.0-100.0) fL MCH (25.0-34.0) pg MCHC (32.0-36.0) g/dL RDW Std Deviation (36.4-46.3) fL RDW Coeff of Mily (11.5-14.5) % Plt Count (130-400) K/uL MPV (9.4-12.4) fL Sodium (136-145) mmol/L Potassium (3.5-5.1) mmol/L Chloride (98-107) mmol/L Carbon Dioxide (21-32) mmol/L Anion Gap (3-11) BUN (6-23) mg/dl Creatinine (0.6-1.2) mg/dl Est Cr Clr Drug Dosing ml/min Est GFR ( Amer) ml/min Est GFR (Non-Af Amer) ml/min BUN/Creatinine Ratio (10-20) Glucose (70-99(Fasting)) mg/dl Calcium (8.6-10.3) mg/dl Phosphorus (2.5-4.9) mg/dl Magnesium (1.7-2.4) mg/dl Troponin I High Sens (0-14) pg/ml Urine Color Urine Appearance (Clear) Urine pH (4.5-7.5) Ur Specific [place] (1.000-1.030) Urine Protein (Negative) Urine Glucose (UA) (Negative) Urine Ketones (Negative) Urine Blood (Negative) Urine Nitrite (Negative) Urine Bilirubin (Negative) Urine Urobilinogen (Negative) Ur Leukocyte Esterase (Negative) Urine WBC (Auto) (0-5) /hpf Urine RBC (Auto) (0-4) /hpf U Hyaline Cast (Auto) (0-5) /lpf U Epithel Cells (Auto) (0-5) /lpf Urine Bacteria (Auto) (Negative) Adenovirus (PCR) Not Detected (NotDetected) B. pertussis DNA (PCR) Not Detected (NotDetected) B.parapertussis DNA PCR Not Detected (NotDetected) C. pneumoniae DNA (PCR) Not Detected (NotDetected) Coronavirus OC43 (PCR) Not Detected (NotDetected) Coronavirus HKU1 (PCR) Not Detected (NotDetected) Coronavirus 229E (PCR) Not Detected (NotDetected) SARS-CoV-2 (PCR) Not Detected (NotDetected) Coronavirus NL63 (PCR) Not Detected (NotDetected) Human Metapneumovir PCR Not Detected (NotDetected) Influenza Type A (PCR) Not Detected (NotDetected) Influenza Type B (PCR) Not Detected (NotDetected) M. pneumoniae (PCR) Not Detected (NotDetected) Parainfluenza 1 (PCR) Not Detected (NotDetected) Parainfluenza 2 (PCR) Not Detected (NotDetected) Parainfluenza 3 (PCR) Not Detected (NotDetected) Parainfluenza 4 (PCR) Not Detected (NotDetected) RSV (PCR) Not Detected (NotDetected) Entero/Rhino (PCR) Not Detected (NotDetected) Medications Administered Current Inpatient Medications Acetaminophen (Acetaminophen 325 Mg Tab) 650 mg PO Q4H PRN PRN Reason: Pain or Fever Stop: 12/03/23 11:56 Last Admin: 11/03/23 19:41 Dose: 650 mg
--- NOTE | 2023-11-04 12:45 | Cardiology Progress Note ---
Date of Service November 04, 2023 Assessment & Plan (1) Elevated troponin: Plan 1. Elevated troponin: Her troponin peaked at 15,752 on November 03, 2023 at 2121, this morning it had dropped to 13,300. Her electrocardiogram this morning does not show any acute changes. This remains consistent with myocarditis. At this point I would not pursue further inpatient testing, we should repeat the troponin in 1 to 2 weeks and repeat the echocardiogram to make sure the troponin is trending down and she does not develop left ventricular dysfunction. Admission and Anticipated Discharge Date Admission Date: November 03, 2023 Subjective She is feeling well today, she tells me that she feels normal and has no further chest discomfort. She has not been very active but is out of bed in her room. Physical Exam Physical Exam: Constitutional: Alert, cooperative and in no distress. HEENT: Unremarkable Neck: No jugular venous distention, carotid pulses are normal and equal bilaterally without bruits. Pulmonary: Clear to auscultation bilaterally. Cardiac: Regular rhythm with no murmur, gallop or rub. Abdomen: Soft, nontender with normal bowel sounds. Extremities: No edema. Distal pulses intact. Neurologic: No focal findings. Gait is steady. Skin: No rash, ecchymoses or petechiae. Results & Data Vital Signs (Past 12 Hours) Vital Signs Temp Pulse Pulse Resp BP Pulse Ox O2 Del Method 11/04/23 10:54 36.8 C 63 17 93/73 L 98 Room Air 11/04/23 07:44 36.8 C 81 16 90/62 L 97 Room Air 11/04/23 07:00 68 11/04/23 03:00 36.6 C 70 16 111/75 99 Room Air 11/04/23 00:50 64 Laboratory Results Cardiac Enzymes 11/03/23 11/03/23 11/04/23 Range/Units 14:43 21:21 07:00 Troponin I High Sens 82983.5 H* 03388.6 H* 27916.0 H* (0-14) pg/ml CBC 11/04/23 Range/Units 07:00 WBC 3.50 L (4.8-10.8) K/ul RBC 3.57 L (4.20-5.40) M/uL Hgb 11.7 L (12.0-16.0) g/dl Hct 35.0 L (37.0-47.0) % Plt Count 165 (130-400) K/uL Comprehensive Metabolic Panel 11/04/23 Range/Units 07:00 Sodium 139 (136-145) mmol/L Potassium 3.8 (3.5-5.1) mmol/L Chloride 107 (98-107) mmol/L Carbon Dioxide 27 (21-32) mmol/L BUN 8 (6-23) mg/dl Creatinine 0.54 L (0.6-1.2) mg/dl Glucose 103 H (70-99(Fasting)) mg/dl Calcium 8.9 (8.6-10.3) mg/dl Intake and Output 11/03/23 11/04/23 11/04/23 22:59 06:59 14:59 Intake Total 1200 / 1720 400 / 1720 Balance 1200 / 1720 400 / 1720 Intake: Oral 1200 / 1720 400 / 1720 Other: Weight 70 kg Weight Measurement Method Built in [facility] Elevated troponin: Diagnostic Findings Telemetry: Sinus rhythm with PVCs, no significant arrhythmia. PG Care Time/CCT Total # of Minutes Spent Total Time Spent with Patient: Total time spent is greater than 50% in coordination of care (as documented) at patient's floor/unit and/or counseling patient: Coding Level of Care Code 54975 SUB INP/OBS CARE 2/35MIN Diagnoses Elevated troponin R79.89
--- NOTE | 2023-11-04 15:38 | Discharge Summary ---
Date of Service November 04, 2023 Admission HPI Per Admitting Provider 33-year-old female without significant past medical or surgical history who presents to the ED for evaluation of chest pain. History is obtained from the patient. She reports that 3 days ago, while she was at work she developed a midsternal chest pressure. She describes the pain as severe. She reports that she felt very fatigued that evening. Pain has been fairly constant since that time. Patient reports that she took Tums without relief. Reports the pain is worse with lying down and somewhat improves when sitting up. She denies shortness of breath. Reports associated diaphoresis, nausea. She reports a few episodes of vomiting and diarrhea. Denies hematemesis, coffee-ground emesis, bright red bleeding per rectum, dark tarry stools. Reports that her son was diagnosed with influenza a couple of weeks ago. Patient denies any URI symptoms. No fevers or chills. No urinary symptoms. Denies any recent travel. In the ED, initial HS troponin 14,000. EKG without acute ST changes. Patient is hemodynamically stable. She received a full dose aspirin and half inch nitroglycerin paste. Patient reports she is currently chest pain-free. Cardiology was notified by ED provider. Admission Exam Per Admitting Provider Constitutional: WD/WN, vitals as above no acute distress Eyes: PERRL, conjunctivae normal, anicteric sclerae ENMT: external ear and nose normal, oropharynx normal Respiratory: normal respiratory effort, lungs clear to auscultation Cardiovascular: Rate/Rhythm: regular rate and regular rhythm Vessels: normal peripheral pulses Extremities: no edema Gastrointestinal (Abdomen): normal bowel sounds, soft, nontender, no hepatosplenomegaly Musculoskeletal: no cyanosis or clubbing, extremities motor strength 5/5 Skin: no rashes, warm and dry Neurologic: PERRL, EOMI, accommodation nl, no face palsy, no dysarthria Psychiatric: A+Ox3, euthymic affect Principal Diagnosis Myocarditis Discharge Exam Constitutional: WD/WN, young F in NAD Eyes: PERRL, conjunctivae normal, anicteric sclerae ENMT: external ear and nose normal, oropharynx normal Respiratory: normal respiratory effort, lungs clear to auscultation Cardiovascular: Rate/Rhythm: regular rate and regular rhythm Vessels: normal peripheral pulses Extremities: no edema Gastrointestinal (Abdomen): normal bowel sounds, soft, nontender Musculoskeletal: moves extremities Skin: no rashes, warm and dry Neurologic: PERRL, EOMI, no face palsy, no dysarthria, moves extremities Psychiatric: A+Ox3, euthymic affect Discharge Data Allergies Allergy/AdvReac Type Severity Reaction Status Date / Time prednisone Allergy Intermediate Hives Unverified 11/03/23 10:24 No Known Drug Allergies Allergy Verified 04/23/19 11:45 Consultations 11/03/23 09:36 ED Decision to Admit Stat 11/03/23 11:57 Consult Cardiology Routine Ordered Studies 11/03/23 08:27 CT angio chest PE protocol Stat FINDINGS: Thyroid: Imaged portions of the thyroid gland are normal in size and attenuation. Thoracic aorta: The thoracic aorta is normal in caliber and demonstrates standard 3-vessel arch anatomy. No dissection is seen. Pulmonary vasculature: The pulmonary trunk is normal in caliber. There are no filling defects identified in main, lobar, or segmental pulmonary branches to suggest pulmonary embolus. Heart: The heart is normal in size and without pericardial effusion. Lungs and pleural spaces: The lungs and pleural spaces are clear. The trachea and central airways are patent. Mediastinum: There is no mediastinal lymphadenopathy. Chey: Clear. Axillae: There is no axillary lymphadenopathy. Upper abdomen: Partially visualized upper abdominal viscera is within normal limits. Skeletal structures: No lytic or blastic bony lesions are seen. IMPRESSION: 1. There is no evidence of pulmonary embolus in the main, lobar, or segmental pulmonary arteries. 2. The lungs are clear. Hospital Course (1) Chest pain: (2) Elevated troponin: (1) Chest pain: (2) Elevated troponin: Plan: Patient presenting from home with reports of persistent chest pain x 3 days. Symptoms worse with lying flat, improved with sitting up. Reports her son had influenza 2 weeks ago. Patient denies any URI or other viral illness symptoms. In the ED, HS troponin 14,000 -> 17,[address] changes Most likely secondary to myocarditis Cardiology consulted and evaluated patient in the ED, echocardiogram performed at bedside, and reviewed Cardiology recommendations: 1. Avoid NSAIDs. 2. Limiting alcohol to 1 drink or less per day. 3. Reduce physical activity. 4. No vigorous exercise for 3-6 months. 5. Follow-up with cardiology as an outpatient. Repeat the troponin in 1 to 2 weeks and repeat the echocardiogram to make sure the troponin is trending down and patient does not develop left ventricular dysfunction. (3) Alcohol use: Patient reports drinking 1 bottle of wine/day Monitor for signs of withdrawal Encourage alcohol cessation Noted elevated AST 106, likely secondary to alcohol use Total Time Total Time Spent Total Time Spent (In Minutes): 40 Discharge Plan Discharge Items Patient Disposition: Home - Self-Care Reason For Visit: myocarditis Discharge Diagnosis: Myocarditis Condition on Discharge: Good Activity: Per Instructions section Non-emergency contact: Primary Care Provider and Supervisor [employer] Call non-emergency contact if: you have any medication questions and your symptoms worsen Follow-up/Referrals: PCP,NO [Primary Care Provider] - Diet: Heart Healthy Addtl Attending Provider Instructions: Follow up with 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 You will be contacted about your appointments. Avoid NSAIDs, such as Aleve, Mortrin, Ibuprofen. You can take Tylenol 1,000 mg three times a day. Avoid any excessive exercise for 3-6 months. Reduce physical activity. Limit alcohol to 1 drink or less per day. Pending Studies at Discharge: No Stand-Alone Forms: [facility], Smoking Cessation Medications and DC Order Prescriptions: No Action No Known Home Medications Discharge Orders: Discharge Order (Routine); Ordered 11/04/23 Ordered By: Bry Mathew Admission Data Admit Date/Time: 11/03/23 10:08 Attending Provider: Bry Mathew Admit Provider: Bry Mathew Primary Care Provider: PCP,NO Other Providers: Ehsan Vera; Bry Mathew
--- NOTE | 2023-11-07 06:56 | Electrocardiogram Report ---
Test Reason : Blood Pressure : / mmHG Vent. Rate : 069 BPM Atrial Rate : 069 BPM P-R Int : 138 ms QRS Dur : 080 ms QT Int : 412 ms P-R-T Axes : 037 039 038 degrees QTc Int : 441 ms Normal sinus rhythm Anterior infarct (cited on or before 04-NOV-2023) Abnormal ECG When compared with ECG of 03-NOV-2023 07:17, DE interval has increased ST no longer elevated in Inferior leads Nonspecific T wave abnormality no longer evident in Anterior leads Confirmed by Yassine Mead ([id number]) on 11/07/2023 6:56:26 AM Referred By: REFERRED SELF Confirmed By:Yassine Mead
== END 2023-11-04 16:11 | disposition home or self-care (01) | DRG 316 ==
LOC: ED 07:00 → EDINP 10:08 → 2E 11:56